=== PATIENT | female | born 1950 | race African-American/Black ===

== ENCOUNTER 2019-06-09 06:30 | Observation (INO) | payer MEDICARE, OTHER ==
[2019-06-08 12:25] LABS: BASOPHILS # (AUTO) 0.1 (0.0-0.1); BASOPHILS % 0.7 % (0.0-1.0); EOSINOPHILS # (AUTO) 0.2 (0.0-0.4); EOSINOPHILS % 2.1 % (0.0-6.0); HEMATOCRIT 37.4 % (34.2-44.1); HEMOGLOBIN 12.3 g/dL (12.0-16.0); LYMPHOCYTES # (AUTO) 1.4 (1.0-3.2); LYMPHOCYTES % 18.7 % (18.0-39.1); MEAN CORPUSCULAR HEMOGLOBIN 28.5 pg (28-32); MEAN CORPUSCULAR HGB CONC 32.9 g/dL (31-35); MEAN CORPUSCULAR VOLUME 86.8 fL (81-99); MONOCYTES # (AUTO) 0.5 (0.2-0.8); NEUTROPHILS # (AUTO) 5.2 (2.1-6.9); NEUTROPHILS % 71.2 % (38.7-80.0); PLATELET COUNT 208 x10e3/uL (140-360); RED BLOOD COUNT 4.31 x10e6/uL (3.6-5.1); RED CELL DISTRIBUTION WIDTH 14.6 % (11.7-14.4)
[2019-06-08 12:42] LABS: INR 0.86; PROTHROMBIN TIME 12.2 seconds (11.9-14.5)
[2019-06-08 12:43] LABS: PARTIAL THROMBOPLASTIN TIME 24.5 seconds (23.8-35.5)
[2019-06-08 12:46] LABS: ANION GAP 11.5 mmol/L (8-16); CALCIUM 11.3 mg/dL (8.4-10.2); CREATININE, SERUM 1.37 mg/dL (0.57-1.11); POTASSIUM 3.5 mmol/L (3.5-5.1)
--- NOTE | 2019-06-08 12:55 | Diagnostic Imaging Report ---
EXAM: CHEST 2 VIEWS DATE: 06/08/2019 11:53 AM INDICATION: Preoperative evaluation for spinal surgery COMPARISON: None FINDINGS: The trachea is midline. The lungs are symmetrically expanded without evidence for large focal consolidation, pneumothorax, or significant pleural effusion. The cardiomediastinal silhouette and pulmonary vasculature are within normal limits. No acute osseous abnormality is identified. The surrounding soft tissues are unremarkable. IMPRESSION: No acute cardiopulmonary process identified. Signed by: Dr. Frederic Sotelo MD on 06/08/2019 12:52 PM
[~2019-06-09] VITALS: Ht 172.7 cm; Wt 100.2 kg
[~2019-06-09 06:30] MED LIST: ACETAMINOPHEN500 M1 PO; AMLODIPINE BESYL5 MG PO; ATORVASTATIN CA20 MG PO; CALTRATE 600 W1 EACH PO; COQ-10100 MG PO; DIABETES HEALT1 EACH PO; GLIPIZIDE5 MG PO; LABETALOL HCL200 MG PO; LOSARTAN-HCTZ1 EACH PO; MEGA RED PO; METFORMIN HCL500 MG PO; NAPROXEN250 MG PO
--- OUTSIDE RECORDS SUMMARY | 2019-06-09 06:40 | XMS REPORT ---
Author Author ERICK STEPHENS [facility] eClinicalWorks Address Unknown Phone Unavailable Care Team Providers Care Battery Loader Name Role Phone ERICK STEPHENS Unavailable Allergies, Adverse Reactions, Alerts Substance Reaction Event Type codeine stomach upset Drug Allergy Encounters Encounter Location Date abdominal pain Niki Ordaz [place], [place] Apr 30, 2015 sleep study Niki Ordaz MD, [place] May 01, 2015 pain Niki Ordaz MD, [place] Sep 10, 2015 Med ck Niki Ordaz MD, [place] April 18, 2014 rx Niki Ordaz MD, [place] Jun 26, 2014 MEDS Niki Ordaz MD, [place] Aug 04, 2014 Problems Problem Type Condition ICD-9 Code Onset Dates Condition Status Assessment Diabetes with renal manifestations, type II or unspecified type, 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 Active Assessment Unspecified essential hypertension 401.9 Active Assessment Other and unspecified hyperlipidemia 272.4 Active Assessment Obesity 278.00 Active Assessment Atrial fibrillation 427.31 Active Problem Atrial fibrillation 427.31 Active Problem Obesity 278.00 Active Problem Low back pain M54.5 Active Problem Diabetes with renal manifestations, type II or unspecified type, 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 Active Assessment Low back pain M54.5 Active Problem Unspecified essential hypertension 401.9 Active Problem Other and unspecified hyperlipidemia 272.4 Active Medications Medication Code System Code Instructions Start Date End Date Status Dosage [facility] [address]-04 10 MG Orally Once a day Active 1 tablet [facility] [address]-75 25 MG Orally Active Unknown PredniSONE [facility] [address]-37 10 mg Orally twice a day (bid) Sep 10, 2015 Sep 15, 2015 Active 1 tablet with food or milk Eliquis [facility] [address]-33 5 MG Orally Active Unknown Tradjenta [facility] [address]-46 5 MG Orally Once a day Active 1 tablet Losartan Potassium-HCTZ [facility] [address]-75 50-12.5 MG Orally Once a day Active 1 tablet Simvastatin [facility] [address]-62 40 MG Orally Once a day Active 1 tablet in the evening Hyzaar [facility] 58907781734 100-25 Active TAKE ONE TABLET BY MOUTH ONE TIME DAILY Labetalol HCl [facility] [address]-50 300 PO twice a day (bid) Active take 1.5 tablet by mouth twice daily Social History Social History Element Qualifiers Date Reported Tobacco Use: . Are you a: never smoker Sep 10, 2015 Use of recreational / street drugs? . Answer: No Sep 10, 2015 Alcohol Screening: . Points: 0, Interpretation: Negative Sep 10, 2015 Do you have pets? . Status: Yes, Type: dog(s) Sep 10, 2015 Marital Status: . Sep 10, 2015 Caffeine intake? . Status: Yes, What type: Coffee, 1 cup a day Sep 10, 2015 Do you exercise? . Answer: No Sep 10, 2015 Do you drink alcohol? . Status: No Sep 10, 2015 Occupation: . Retired; [employer] Sep 10, 2015 Family history Qualifier Description Comment Date Reported Maternal Grandmother Comment not available Sep 10, 2015 Paternal Grandmother Comment not available Sep 10, 2015 Siblings alive HTN Sep 10, 2015 Maternal Grandfather Comment not available Sep 10, 2015 Children alive son bipolar and amputee Sep 10, 2015 Father Comment not available Sep 10, 2015 Paternal Grandfather Comment not available Sep 10, 2015 Mother alive Dementia HTN Sep 10, 2015 Other: Comment not available Sep 10, 2015 Vital Signs Date/Time: Sep 10, 2015 Blood Pressure Diastolic 84 mm Hg Blood Pressure Systolic 130 mm Hg Temperature 97.6 F Weight 233 lbs Height 69 in Summary Purpose eClinicalWorks Submission
--- OUTSIDE RECORDS SUMMARY | 2019-06-09 06:40 | XMS REPORT ---
Author Author NIKI CHARLES Organization eClinicalWorks Address Unknown Phone Unavailable Care Team Providers Care Tour Escort Name Role Phone NIKI CHARLES CP Unavailable Encounters Encounter Location Date abdominal pain Niki Charles MD, [place] Apr 30, 2015 sleep study Niki Charles MD, PA May 01, 2015 Med ck Niki Charles MD, PA April 18, 2014 rx Niki Charles MD, PA Jun 26, 2014 MEDS Niki Charles MD, [place] Aug 04, 2014 Problems Problem Type Condition ICD-9 Code Onset Dates Condition Status Problem Obesity 278.00 Active Problem Unspecified essential hypertension 401.9 Active Problem Atrial fibrillation 427.31 Active Problem Other and unspecified hyperlipidemia 272.4 Active Problem Diabetes with renal manifestations, type II or unspecified type, 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 Are you a: never smoker Apr 30, 2015 Use of recreational / street drugs? . Answer: No Apr 30, 2015 Alcohol Screening: . Points: 0, Interpretation: Negative Apr 30, 2015 Do you have pets? . Status: Yes, Type: dog(s) Apr 30, 2015 Marital Status: . Apr 30, 2015 Caffeine intake? . Status: Yes, What type: Coffee, 1 cup a day Apr 30, 2015 Do you exercise? . Answer: No Apr 30, 2015 Do you drink alcohol? . Status: No Apr 30, 2015 Occupation: . Retired; [employer] Apr 30, 2015 Summary Purpose eClinicalWorks Submission
--- OUTSIDE RECORDS SUMMARY | 2019-06-09 06:40 | XMS REPORT | Continuity of Care Document ---
Author Author [facility] Address Unknown Phone Unavailable Care Team Providers Care Redeye Gunner Name Role Phone [employer] Unavailable Unavailable Problems Problem Status Onset Date Classification Date Reported Comments Source Unspecified essential hypertension Active Diagnosis 09/17/2015 eCW: Niki Ordaz MD, [place] Other and unspecified hyperlipidemia Active Diagnosis 09/17/2015 eCW: Niki Ordaz MD, [place] Diabetes mellitus without mention of complication, type II or unspecified type, uncontrolled Active Problem 08/26/2014 eCW: Niki Ordaz MD [place] Diabetes with renal manifestations, type II or unspecified type, uncontrolled Active Diagnosis 09/17/2015 eCW: Niki Ordaz MD [place] Obesity Active Diagnosis 09/17/2015 eCW: Niki Ordaz MD [place] Atrial fibrillation Active Diagnosis 09/17/2015 eCW: Niki Ordaz MD, [place] Personal history of transient ischemic attack [TIA], and cerebral infarction without residual deficits Active Diagnosis 04/24/2014 eCW: Niki Ordaz MD [place] Chronic kidney disease, Stage III Active Diagnosis 04/24/2014 eCW: Niki Ordaz MD [place] Body Mass Index 33.0-33.9, adult Active Diagnosis 04/24/2014 eCW: Niki Ordaz MD, [place] Body Mass Index 34.0-34.9, adult Active Diagnosis 05/02/2015 eCW: Niki Ordaz MD, [place] Gastroenteritis Active Diagnosis 05/02/2015 eCW: Niki Ordaz MD PA UTI Active Diagnosis 05/02/2015 eCW: Niki Ordaz MD, PA Low back pain Active Diagnosis 01/17/2016 eCW: Niki Ordaz MD, [place] Obesity Active Diagnosis 01/17/2016 eCW: Niki Melvin, MD, PA 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 Diagnosis 01/17/2016 eCW: Niki Ordaz MD, PA Chronic kidney disease, stage II Active Problem 01/17/2016 eCW: Niki Ordaz MD, [place] Essential hypertension Active Problem 01/17/2016 eCW: Niki Ordaz MD, [place] Atrial fibrillation Active Problem 01/17/2016 eCW: Niki Ordaz MD, [place] Hyperlipidemia Active Problem 01/17/2016 eCW: Niki Ordaz MD, PA Medications Medication Details Route Status Patient Instructions Ordering Provider Order Date Source PredniSONE 1 tablet with food or milk Orally Active 10 mg Orally twice a day (bid) STEPHENS 09/10/2015 eCW: Niki Ordaz MD, PA Pyridium 1 tablet after meals Orally Active 200 MG Orally Three times a day [facility] 04/30/2015 eCW: Niki Ordaz MD, PA Cipro 1 tablet Orally Active 250 MG Orally every 12 hrs [facility] 04/30/2015 eCW: Niki Ordaz MD, PA Labetalol HCl as directed Orally Active 300 MG Orally daily [facility] 08/04/2014 eCW: Niki Ordaz MD, PA Fluticasone Propionate 2 spray in each nostril Nasally Active 50 MCG/ACT Nasally Once a day [facility] 06/26/2014 eCW: Niki Ordaz MD, PA Simvastatin 1 tablet in the evening Orally Active 40 MG Orally Once a day eCW: Niki Ordaz MD, [place] Metformin HCl 1 tablet with meals Orally Active 500 MG Orally Twice a day [facility] eCW: Niki Ordaz MD, PA NIFEdipine Unknown Orally Active 60 MG Orally [place] eCW: Niki Ordaz MD, PA Lorazepam 1 tablet at bedtime Orally Active 2 MG Orally Once a day [facility] eCW: Niki Ordaz MD, PA Pradaxa 2 capsules Orally Active 75 MG Orally Twice a day [facility] eCW: Niki Ordaz MD, PA Multaq 1 tablet with meals Orally Active 400 MG Orally Twice a day [facility] eCW: Niki Ordaz MD, PA Diovan 1 tablet Orally Active 80 MG Orally Once a day eCW: Niki Ordaz MD, ARUN Labetalol HCl Unknown Orally Active 300 MG Orally eCW: Niki Ordaz MD, ARUN Hyzaar TAKE ONE TABLET BY MOUTH ONE TIME DAILY NA Active 100- 25 eCW: Niki Ordaz MD, PA Zocor TAKE ONE TABLET BY MOUTH ONE TIME DAILY NA Active 40 eCW: Niki Ordaz MD, ARUN HydrOXYzine HCl Unknown Orally Active 25 MG Orally eCW: Niki Ordaz MD, PA Labetalol HCl take 1.5 tablet by mouth twice daily PO Active 300 PO twice a day (bid) eCW: Niki Ordaz MD, PA Nifedical XL TAKE ONE TABLET BY MOUTH ONE TIME DAILY NA Active 60 MG eCW: Niki Ordaz MD, PA GlipiZIDE 1 tablet Orally Active 10 MG Orally Once a day eCW: Niki Ordaz MD, PA Eliquis Unknown Orally Active 5 MG Orally eCW: Niki Ordaz MD, PA Tradjenta 1 tablet Orally Active 5 MG Orally Once a day eCW: Niki Ordaz MD, PA Multaq TAKE ONE TABLET BY MOUTH TWICE DAILY NA Active 400 eCW: Niki Ordaz MD, PA Losartan Potassium-HCTZ 2 tablet Orally Active 50-12.5 MG Orally Once a day eCW: Niki Ordaz MD, PA Digox 1 tablet Orally Active 250 MCG Orally Once a day eCW: Nkii Ordaz MD, PA Allergies, Adverse Reactions, Alerts Substance Category Reaction Severity Reaction type Status Date Reported Comments Source codeine Adverse Reaction stomach upset Adverse Reaction Active 11/15/2015 eCW: Niki Ordaz MD, [place] Metformin HCl Adverse Reaction elevates renal function Adverse Reaction Active 11/15/2015 eCW: Niki Ordaz MD, ARUN Immunizations No Data Provided for This Section Results No Data Provided for This Section Pathology Reports No Data Provided for This Section Diagnostic Reports No Data Provided for This Section Consultation Notes No Data Provided for This Section Discharge Summaries No Data Provided for This Section History and Physicals No Data Provided for This Section Vital Signs Vital Sign Value Date Comments Source Diastolic (mm Hg) 90 11/15/2015 eCW: Niki Ordaz MD, [place] Systolic (mm Hg) 140 11/15/2015 eCW: Niki Ordaz MD, PA Temperature Oral (F) 94.7 F 11/15/2015 eCW: Niki Ordaz MD, PA Weight 230 11/15/2015 eCW: Niki Ordaz MD, PA Height 69 11/15/2015 eCW: Niki Ordaz MD, PA Diastolic (mm Hg) 90 11/15/2015 eCW: Niki Ordaz MD, PA Systolic (mm Hg) 140 11/15/2015 eCW: Niki Ordaz MD, PA Temperature Oral (F) 94.7 F 11/15/2015 eCW: Niki Ordaz MD, PA Weight 230 11/15/2015 eCW: Niki Ordaz MD, PA Height 69 11/15/2015 eCW: Niki Ordaz MD, PA Diastolic (mm Hg) 84 09/10/2015 eCW: Niki Ordaz MD, PA Systolic (mm Hg) 130 09/10/2015 eCW: Niki Ordaz MD, PA Temperature Oral (F) 97.6 F 09/10/2015 eCW: Niki Ordaz MD, PA Weight 233 09/10/2015 eCW: Niki Ordaz MD, PA Height 69 09/10/2015 eCW: Niki Ordaz MD, PA Diastolic (mm Hg) 86 04/30/2015 eCW: Niki Ordaz MD, PA Systolic (mm Hg) 130 04/30/2015 eCW: Niki Ordaz MD, PA Temperature Oral (F) 98.7 F 04/30/2015 eCW: Niki Ordaz MD, PA Weight 235 04/30/2015 eCW: Niki Ordaz MD, PA Height 69 04/30/2015 eCW: Niki Ordaz MD, PA Weight 225 04/18/2014 eCW: Niki Ordaz MD, PA Height 69 04/18/2014 eCW: Niki Ordaz MD, PA Temperature Oral (F) 98.4 F 04/18/2014 eCW: Niki Ordaz MD, PA Diastolic (mm Hg) 82 04/18/2014 eCW: Niki Ordaz MD, PA Systolic (mm Hg) 130 04/18/2014 eCW: Niki Ordaz MD, PA Encounters Location Location Details Encounter Type Encounter Number Reason For Visit Attending Provider ADM Date DC Date Status Source Niki Ordaz MD, PA [facility] ck [id number] 04/18/2014 04/18/2014 eCW: Niki Ordaz MD, PA Niki Ordaz MD, [facility] ck [id number] 04/18/2014 04/18/2014 eCW: Niki Ordaz MD, PA Niki Ordaz MD, PA [facility] ck [id number] 04/18/2014 04/18/2014 eCW: Niki Ordaz MD, PA Niki Ordaz MD, PA [facility] ck [id number] 04/18/2014 04/18/2014 eCW: Niki Ordaz MD, PA Niki Ordaz MD, PA [facility] ck [id number] 04/18/2014 04/18/2014 eCW: Niki Ordaz MD, PA Niki Ordaz MD, PA [facility] ck [id number] 04/18/2014 04/18/2014 eCW: Niki Ordaz MD, PA Niki Ordaz MD, PA Med ck [id number] 04/18/2014 04/18/2014 eCW: Niki Ordaz MD, PA Niki Ordaz MD, PA Med ck [id number] 04/18/2014 04/18/2014 eCW: Niki Ordaz MD, PA Niki Ordaz MD, PA rx [id number] 06/26/2014 06/26/2014 eCW: Niki Ordaz MD, PA Niki Ordaz MD, [place] rx [id number] 06/26/2014 06/26/2014 eCW: Niki Ordaz MD, PA Niki Ordaz MD, PA rx [id number] 06/26/2014 06/26/2014 eCW: Niki Ordaz MD, PA Niki Ordaz MD, PA rx [id number] 06/26/2014 06/26/2014 eCW: Niki Ordaz MD, PA Niki Ordaz MD, PA rx [id number] 06/26/2014 06/26/2014 eCW: Niki Ordaz MD, PA Niki Ordaz MD, PA rx [id number] 06/26/2014 06/26/2014 eCW: Niki Ordaz MD, ARUN Ordaz MD, PA rx [id number] 06/26/2014 06/26/2014 eCW: Niki Ordaz MD, PA Niki Ordaz MD, PA MEDS [id number] 08/04/2014 08/04/2014 eCW: Niki Ordaz MD, PA Niki Ordaz MD, PA MEDS [id number] 08/04/2014 08/04/2014 eCW: Niki Ordaz MD, PA Niki Ordaz MD, PA MEDS [id number] 08/04/2014 08/04/2014 eCW: Niki Ordaz MD, PA Niki Ordaz MD, PA MEDS [id number] 08/04/2014 08/04/2014 eCW: Niki Ordaz MD, ARUN Ordaz MD, PA MEDS [id number] 08/04/2014 08/04/2014 eCW: Niki Ordaz MD, ARUN Ordaz MD, PA MEDS [id number] 08/04/2014 08/04/2014 eCW: Niki Ordaz MD, PA Niki Ordaz MD, PA abdominal pain [id number] 04/30/2015 04/30/2015 eCW: Niki Ordaz MD, ARUN Ordaz MD, PA abdominal pain [id number] 04/30/2015 04/30/2015 eCW: Niki Ordaz MD, PA Niki Ordaz MD, PA abdominal pain [id number] 04/30/2015 04/30/2015 eCW: Niki Ordaz MD, PA Niki Ordaz MD, PA abdominal pain [id number] 04/30/2015 04/30/2015 eCW: Niki Ordaz MD, PA Niki Ordaz MD, PA abdominal pain [id number] 04/30/2015 04/30/2015 eCW: Niki Ordaz MD, PA Niki Ordaz MD, PA sleep study [id number] 05/01/2015 05/01/2015 eCW: Niki Ordaz MD, PA Niki Ordaz MD, PA sleep study [id number] 05/01/2015 05/01/2015 eCW: Niki Ordaz MD, PA Niki Ordaz MD, PA sleep study [id number] 05/01/2015 05/01/2015 eCW: Niki Ordaz MD, PA Niki Ordaz MD, PA sleep study [id number] 05/01/2015 05/01/2015 eCW: Niki Ordaz MD, PA Niki Ordaz MD, PA sleep study [id number] 05/01/2015 05/01/2015 eCW: Niki Ordaz MD, PA Niki Ordaz MD, PA pain [id number] 09/10/2015 09/10/2015 eCW: Niki Ordaz MD, ARUN Ordaz MD, ARUN pain [id number] 09/10/2015 09/10/2015 eCW: Niik Ordaz MD, ARUN Ordaz MD, ARUN pain [id number] 09/10/2015 09/10/2015 eCW: Niki Ordaz MD, ARUN Ordaz MD, ARUN 3 month fu [id number] 11/15/2015 11/15/2015 eCW: Niki Ordaz MD, ARUN Ordaz MD, ARUN 3 month fu [id number] 11/15/2015 11/15/2015 eCW: Niki Ordaz MD, PA Procedures No Data Provided for This Section Assessment and Plan No Data Provided for This Section Plan of Care No Data Provided for This Section Social History Social History Date Source Social History ElementQualifiersDate Reported Tobacco Use: . Are you a: never smoker Nov 17, 2015 Use of recreational / street drugs? . Answer: No Nov 17, 2015 Alcohol Screening: . Points: 0, Interpretation: Negative Nov 17, 2015 Do you have pets? . Status: Yes, Type: dog(s) Nov 17, 2015 Marital Status: . Nov 17, 2015 Caffeine intake? . Status: Yes, What type: Coffee, 1 cup a day Nov 17, 2015 Do you exercise? . Answer: No Nov 17, 2015 Do you drink alcohol? . Status: No Nov 17, 2015 Occupation: . Retired; [employer] Nov 17, 2015 11/17/2015 eCW: Niki Ordaz MD [place] Family History Value Date Source QualifierDescriptionCommentDate Reported Maternal Grandmother Comment not available Nov 15, 2015 Paternal Grandmother Comment not available Nov 15, 2015 Siblings alive HTN Nov 15, 2015 Maternal Grandfather Comment not available Nov 15, 2015 Children alive son bipolar and amputee Nov 15, 2015 Father Comment not available Nov 15, 2015 Paternal Grandfather Comment not available Nov 15, 2015 Mother alive Dementia HTN Nov 15, 2015 Other: Comment not available Nov 15, 2015 01/17/2016 eCW: Niki Ordaz MD, PA QualifierDescriptionCommentDate Reported Maternal Grandmother Comment not available Nov 15, 2015 Paternal Grandmother Comment not available Nov 15, 2015 Siblings alive HTN Nov 15, 2015 Maternal Grandfather Comment not available Nov 15, 2015 Children alive son bipolar and amputee Nov 15, 2015 Father Comment not available Nov 15, 2015 Paternal Grandfather Comment not available Nov 15, 2015 Mother alive Dementia HTN Nov 15, 2015 Other: Comment not available Nov 15, 2015 11/18/2015 eCW: Niki Ordaz MD, PA QualifierDescriptionCommentDate Reported Maternal Grandmother Comment not available Sep [...] Other: Comment not available Sep 10, 2015 09/17/2015 eCW: Niki Ordaz MD, PA QualifierDescriptionCommentDate Reported Mother Dementia HTN April 18, 2014 04/24/2014 eCW: Niki Ordaz MD, PA Advance Directives No Data Provided for This Section Functional Status No Data Provided for This Section
--- OUTSIDE RECORDS SUMMARY | 2019-06-09 06:40 | XMS REPORT ---
Author Author MARY CHARLES Organization eClinicalWorks Address Unknown Phone Unavailable Care Team Providers Care Exploration Geologist Name Role Phone MARY CHARLES CP Unavailable Encounters Encounter Location Date Med ck Mary Charles MD, PA April 18, 2014 rx Mary Charles MD, PA Jun 26, 2014 Problems Problem Type Condition ICD-9 Code Onset Dates Condition Status Problem Unspecified essential hypertension 401.9 Active Problem Other and unspecified hyperlipidemia 272.4 Active Problem Diabetes mellitus without mention of complication, type II or unspecified type, uncontrolled 250.02 Active Problem Diabetes with renal manifestations, type II or unspecified type, 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 Active Medications Medication Code System Code Instructions Start Date End Date Status Dosage Fluticasone Propionate [facility] [address]-74 50 MCG/ACT Nasally Once a day Jun 26, 2014 Active 2 spray in each nostril Social History Social History Element Qualifiers Date Reported Tobacco Use:Never . Are you a: never smoker April 18, 2014 Alcohol Screening: . Points: 0, Interpretation: Negative April 18, 2014 Do you drink alcohol? . Status: No April 18, 2014 Occupation: . Retired; [employer] April 18, 2014 Summary Purpose eClinicalWorks Submission
--- OUTSIDE RECORDS SUMMARY | 2019-06-09 06:40 | XMS REPORT ---
Author Author NIKI CHARLES Organization eClinicalWorks Address Unknown Phone Unavailable Care Team Providers Care Public Service Representative Name Role Phone NIKI CHARLES Unavailable Allergies, Adverse Reactions, Alerts Substance Reaction Event Type codeine Info Not Available Drug Allergy Encounters Encounter Location Date abdominal pain Niki Charles MD, PA Apr 30, 2015 sleep study Niki Charles MD, PA May 01, 2015 Med ck Niki Charles MD, PA April 18, 2014 rx Niki Charles MD, PA Jun 26, 2014 MEDS Niki Charles MD, PA Aug 04, 2014 Problems Problem Type Condition ICD-9 Code Onset Dates Condition Status Assessment Body Mass Index 34.0-34.9, adult V85.34 Active Assessment Atrial fibrillation 427.31 Active Assessment Obesity 278.00 Active Problem Obesity 278.00 Active Problem Unspecified essential hypertension 401.9 Active Problem Atrial fibrillation 427.31 Active Assessment Gastroenteritis 558.9 Active Assessment UTI (urinary tract infection) 599.0 Active Problem Other and unspecified hyperlipidemia 272.4 Active Problem Diabetes with renal manifestations, type II or unspecified type, 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 Active Medications Medication Code System Code Instructions Start Date End Date Status Dosage [facility] 858[facility] 100-25 Active TAKE ONE TABLET BY MOUTH ONE TIME DAILY [facility] 75[facility]851 40 Active TAKE ONE TABLET BY MOUTH ONE TIME DAILY Simvastatin [facility] [address]-94 40 MG Orally Once a day Active 1 tablet in the evening NIFEdipine [facility] [address]-52 60 MG Orally Active Unknown HydrOXYzine HCl [facility] [address]-75 25 MG Orally Active Unknown Labetalol HCl [facility] [address]-53 300 PO twice a day (bid) Active take 1.5 tablet by mouth twice daily Nifedical XL [facility] 28874779030 60 MG Active TAKE ONE TABLET BY MOUTH ONE TIME DAILY Pradaxa [facility] [address]-47 75 MG Orally Twice a day Active 2 capsules Pyridium [facility] [address]-38 200 MG Orally Three times a day Apr 30, 2015 May 02, 2015 Active 1 tablet after meals Lorazepam [facility] [address]-25 2 MG Orally Once a day Active 1 tablet at bedtime Metformin HCl [facility] [address]-47 500 MG Orally Twice a day Active 1 tablet with meals GlipiZIDE [facility] [address]-68 10 MG Orally Once a day Active 1 tablet Eliquis [facility] [address]-05 5 MG Orally Active Unknown Fluticasone Propionate [facility] [address]-74 50 MCG/ACT Nasally Once a day Jun 26, 2014 Active 2 spray in each nostril Cipro [facility] [address]-23 250 MG Orally every 12 hrs Apr 30, 2015 May 05, 2015 Active 1 tablet Tradjenta [facility] [address]-88 5 MG Orally Once a day Active 1 tablet Multaq [facility] 80366156434 400 Active TAKE ONE TABLET BY MOUTH TWICE DAILY Diovan [facility] [address]-95 80 MG Orally Once a day Active 1 tablet Social History Social History Element Qualifiers Date [...] Apr 30, 2015 Occupation: . Retired; [employer] Apr 30, 2015 Vital Signs Date/Time: Apr 30, 2015 Blood Pressure Diastolic 86 mm Hg Blood Pressure Systolic 130 mm Hg Temperature 98.7 F Weight 235 lbs Height 69 in Summary Purpose eClinicalWorks Submission
--- OUTSIDE RECORDS SUMMARY | 2019-06-09 06:40 | XMS REPORT ---
Author Author ERICK STEPHENS [facility] eClinicalWorks Address Unknown Phone Unavailable Care Team Providers Care Trans Router Name Role Phone ERICK STEPHENS CP Unavailable Allergies, Adverse Reactions, Alerts Substance Reaction Event Type codeine stomach upset Drug Allergy Metformin HCl elevates renal function Drug Allergy Encounters Encounter Location Date abdominal pain [place] Apr 30, 2015 sleep study [place] May 01, 2015 pain [place], [place] Sep 10, 2015 3 month fu [place] Nov 15, 2015 Med ck [place] April 18, 2014 rx [place] Jun 26, 2014 MEDS [place], [place] Aug 04, 2014 Problems Problem Type Condition ICD-9 Code Onset Dates Condition Status Assessment Obesity E66.9 Active Assessment Type 2 diabetes mellitus with diabetic chronic kidney disease E11.22 Active Assessment Low back pain M54.5 Active Problem Chronic kidney disease, stage II (mild) N18.2 Active Problem Essential hypertension I10 Active Problem Type 2 diabetes mellitus with diabetic chronic kidney disease E11.22 Active Problem Low back pain M54.5 Active Problem Obesity E66.9 Active Problem Atrial fibrillation I48.91 Active Problem Hyperlipidemia E78.5 Active Assessment Hyperlipidemia E78.5 Active Assessment Atrial fibrillation I48.91 Active Assessment Essential hypertension I10 Active Assessment Chronic kidney disease, stage II (mild) N18.2 Active Medications Medication Code System Code Instructions Start Date End Date Status Dosage Labetalol HCl [facility] [address]-95 300 PO twice a day (bid) Active take 1.5 tablet by mouth twice daily Losartan Pot[facility]CTZ [facility] [address]-25 50-12.5 MG Orally Once a day Active 2 tablet Simvastatin [facility] [address]-91 40 MG Orally Once a day Active 1 tablet in the evening Hyzaar [facility] 82305648871 100-25 Active TAKE ONE TABLET BY MOUTH ONE TIME DAILY Eliquis [facility] [address]-83 5 MG Orally Active Unknown Digox [facility] [address]-89 250 MCG Orally Once a day Active 1 tablet Zocor [facility] 04721265659 40 Active TAKE ONE TABLET BY MOUTH ONE TIME DAILY HydrOXYzine HCl [facility] [address]-54 25 MG Orally Active Unknown GlipiZIDE [facility] [address]-36 10 MG Orally Once a day Active 1 tablet Tradjenta [facility] [address]-79 5 MG Orally Once a day Active [...] No Nov 17, 2015 Occupation: . Retired; [employer] Nov 17, 2015 Family history Qualifier Description Comment Date Reported Maternal Grandmother Comment not available Nov [...] Other: Comment not available Nov 15, 2015 Vital Signs Date/Time: Nov 15, 2015 Blood Pressure Diastolic 90 mm Hg Blood Pressure Systolic 140 mm Hg Temperature 94.7 F Weight 230 lbs Height 69 in Summary Purpose eClinicalWorks Submission
--- OUTSIDE RECORDS SUMMARY | 2019-06-09 06:40 | XMS REPORT | Clinical Summary ---
Author Author [facility] Organization [facility] Address Unknown Phone Unavailable Care Team Providers Care Chemistry Faculty Member Name Role Phone Abiodun Álvarez MD PCP Allergies Comments Active Allergy Reactions Severity Noted Date Nausea, vomiting Codeine 07/17/2016 Nitroglycerin Itching 07/17/2016 Medications End Date Status Medication Sig Dispensed Refills Start Date Active labetalol (NORMODYNE) 300 TAKE 1.5 (ONE 0 MG tablet AND A HALF) 6 TABLETS BY MOUTH TWICE A DAY Active glipiZIDE (GLUCOTROL) 10 Take 10 mg by 0 MG tablet mouth. Active losartan-hydrochlorothiaz Take 1 tablet 1 jose r (HYZAAR) 50-12.5 mg by mouth once 6 per tablet daily. Active metFORMIN XR 0 (GLUCOPHATE-XR) 500 MG 24 6 hr tablet Active ELIQUIS 5 mg tablet Take 5 mg by 3 mouth once 6 daily. Active simvastatin (ZOCOR) 40 MG Take 40 mg by 0 tablet mouth. Active atorvastatin (LIPITOR) 20 Take 20 mg by 3 MG tablet mouth once 6 daily. Active amLODIPine (NORVASC) 10 Take 10 mg by 3 mg tablet mouth once 7 daily. Active hydroCHLOROthiazide 0 (HYDRODIURIL) 12.5 MG 7 tablet Active lifitegrast (XIIDRA) 5 % Apply 1 drop 60 each 12 dropperette to eye 2 8 (two) times a day. Active olopatadine (PAZEO) 0.7 % Apply 1 drop 2.5 mL 11 drops to eye daily. 9 12/20/2018 Discontinued (Cost of medication) TRADJENTA 5 mg tablet Take 5 mg by 1 mouth once 6 daily. 12/20/2018 Discontinued (Reorder) olopatadine (PAZEO) 0.7 % Apply 1 drop 2.5 mL 11 drops to eye daily. 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 Encounters Care Team Description Date Type Specialty Marce Corcoran MD Nuclear senile cataract of both eyes (Primary Dx); Cupping of optic disc, bilateral 04/25/2019 Office Visit Ophthalmology Marce Corcoran MD Cupping of optic disc, bilateral (Primary Dx); Insufficiency of tear film of both eyes; Nuclear senile cataract of both eyes; Allergic conjunctivitis of both eyes 12/20/2018 Office Visit Ophthalmology Marce Corcoran MD Optic nerve cupping of both eyes (Primary Dx); Insufficiency of tear film of both eyes; Nuclear senile cataract of both eyes 07/26/2018 Office Visit Ophthalmology after 06/08/2018 Family History Medical History Relation Name Comments Thyroid disease Mother Relation Name Status Comments Mother Social History Date Tobacco Use Types Packs/Day Years Used Never Smoker Smokeless Tobacco: Never Used Drinks/Week oz/Week Comments Alcohol Use Yes Sex Assigned at Date Recorded Not on file Industry Job Start Date Occupation Not on file Not on file Not on file Travel End Travel History Travel Start No recent travel history available. Last Filed Vital Signs Not on file Plan of Treatment Care Team Description Date Type Specialty Marce Corcoran MD [address] [facility] [address] [place] [address] [phone] 10/25/2019 Office Visit Ophthalmology Health Maintenance Due Date Last Done Comments BREAST CANCER SCREENING 2000 COLONOSCOPY SCREENING 2000 SHINGLES VACCINES (#1) 2000 65+ PNEUMOCOCCAL VACCINE 2015 (1 of 2 - PCV13) INFLUENZA VACCINE 04/21/2019 06/24/2016 Procedures Comments Procedure Name Priority Date/Time Associated Diagnosis OCT, OPTIC NERVE - OU - Routine 04/25/2019 Cupping of optic disc, BOTH EYES 10:56 AM CDT bilateral AUTOMATED VISUAL FIELD, Routine 04/25/2019 Cupping of optic disc, EXTENDED - OU - BOTH EYES 10:56 AM CDT bilateral after 06/08/2018 Results * OCT, Optic Nerve - OU - Both Eyes (04/25/2019 10:56 AM CDT) Specimen Narrative Performed At Right Eye Reliability was good. Temporal thickness was normal. Superior thickness was normal. Nasal thickness was normal. Inferior thickness was normal. Left Eye Reliability was good. Temporal thickness was normal. Superior thickness was normal. Nasal thickness was normal. Inferior thickness was normal. Notes Global 84 and 88, normal OU * Automated Visual Field, Extended - OU - Both Eyes (04/25/2019 10:56 AM CDT) Specimen Narrative Performed At Right Eye Threshold was 24-2. Strategy was DIANNE. Reliability was poor. Foveal threshold was normal. Findings include non-specific defects. Left Eye Threshold was 24-2. Strategy was DIANNE. Reliability was poor. Foveal threshold was normal. Findings include non-specific defects. after 06/08/2018 Insurance Type Payer Benefit Subscriber ID Effective Phone Address Plan / Dates Group O [facility] MEDICARE [facility] xxxxxxxxx 2019-P MEDICARE resent HMO/PPO Advance Directives For more information, please contact: [phone] Patient Doggy Daycare Activities Director Explanation Type Date Recorded Advance Directives, Living Will and Medical Power of Procurement Director
--- OUTSIDE RECORDS SUMMARY | 2019-06-09 06:40 | XMS REPORT ---
Author Author ERICK STEPHENS [facility] eClinicalWorks Address Unknown Phone Unavailable Care Team Providers Care Airplane Pilot Commercial Name Role Phone ERICK STEPHENS CP Unavailable [...] Date End Date Status Dosage [facility] [address]-06 300 PO twice a day (bid) Active take 1.5 tablet by mouth twice daily Losartan [facility] [address]-20 50-12.5 MG Orally Once a day Active 2 tablet Simvastatin [facility] [address]-38 40 MG Orally Once a day Active 1 tablet in the evening Hyzaar [facility] 76585857204 100-25 Active TAKE ONE TABLET BY MOUTH ONE TIME DAILY Eliquis [facility] [address]-41 5 MG Orally Active Unknown Digox [facility] [address]-74 250 MCG Orally Once a day Active 1 tablet Zocor [facility] 83178009522 40 Active TAKE ONE TABLET BY MOUTH ONE TIME DAILY HydrOXYzine HCl [facility] [address]-63 25 MG Orally Active Unknown GlipiZIDE [facility] [address]-24 10 MG Orally Once a day Active 1 tablet Tradjenta [facility] [address]-87 5 MG Orally Once a day Active [...] No Nov 17, 2015 Occupation: . Retired; [employer] Nov 17, 2015 Family history Qualifier Description [...] F Weight 230 lbs Height 69 in Results 2708 HEMOGLOBIN A1c Summary Purpose eClinicalWorks Submission
--- OUTSIDE RECORDS SUMMARY | 2019-06-09 06:40 | XMS REPORT ---
Author Author MARY CHARLES Organization eClinicalWorks Address Unknown Phone Unavailable Care Team Providers Care Exec. Creative Director Name Role Phone MARY CHARLES CP Unavailable Allergies, Adverse Reactions, Alerts Substance Reaction Event Type codeine Info Not Available Drug Allergy Encounters Encounter Location Date Med ck [place], [place] April 18, 2014 Problems Problem Type Condition ICD-9 Code Onset Dates Condition Status Assessment Personal history of transient ischemic attack [TIA], and cerebral infarction without residual deficits V12.54 Active Assessment Diabetes with renal manifestations, type II or unspecified type, 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 Active Assessment Atrial fibrillation 427.31 Active Assessment Chronic kidney disease, Stage III (moderate) 585.3 Active Problem Unspecified essential hypertension 401.9 Active Problem Other and unspecified hyperlipidemia 272.4 Active Problem Diabetes mellitus without mention of complication, type II or unspecified type, uncontrolled 250.02 Active Assessment Other and unspecified hyperlipidemia 272.4 Active Assessment Body Mass Index 33.0-33.9, adult V85.33 Active Problem Diabetes with renal manifestations, type II or unspecified type, 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 Active Assessment Unspecified essential hypertension 401.9 Active Medications Medication Code System Code Instructions Start Date End Date Status Dosage Simvastatin [facility] [address]-56 40 MG Orally Once a day Active 1 tablet in the evening Metformin HCl [facility] [address]-26 500 MG Orally Twice a day Active 1 tablet with meals NIFEdipine [facility] [address]-12 60 MG Orally Active Unknown Lorazepam [facility] [address]-73 2 MG Orally Once a day Active 1 tablet at bedtime Pradaxa [facility] [address]-40 75 MG Orally Twice a day Active 2 capsules Multaq [facility] [address]-93 400 MG Orally Twice a day Active 1 tablet with meals Diovan [facility] [address]-84 80 MG Orally Once a day Active 1 tablet Labetalol HCl [facility] [address]-80 300 MG Orally Active Unknown Social History Social History Element Qualifiers Date Reported Tobacco Use: . Are you a: never smoker April 18, 2014 Alcohol Screening: . Points: 0, Interpretation: Negative April 18, 2014 Do you drink alcohol? . Status: No April 18, 2014 Occupation: . Retired; [employer] April 18, 2014 Family history Qualifier Description Comment Date Reported Mother Dementia HTN April 18, 2014 Vital Signs Date/Time: April 18, 2014 Weight 225 lbs Height 69 in Temperature 98.4 F Blood Pressure Diastolic 82 mm Hg Blood Pressure Systolic 130 mm Hg Summary Purpose eClinicalWorks Submission
--- OUTSIDE RECORDS SUMMARY | 2019-06-09 06:40 | XMS REPORT ---
[facility] Address Unknown Phone Unavailable Care Team Providers Care Textile Machinery Sales Representative Name Role Phone YENNI MATIAS Unavailable Unavailable Payers Payer Name Policy Type Policy Number Effective Date Expiration Date Problems This patient has no known problems. Allergies, Adverse Reactions, Alerts This patient has no known allergies or adverse reactions. Medications This patient has no known medications. Results Test Description Test Time Test Comments Text Results Atomic Results Result Comments CHEST 2 VIEWS 2019-06-08 12:52:00 [place] [address] Patient Name: DORIS SEYMOUR MR #: [id number] : 1950 Age/Sex: 68/F Req #: [id number] [facility] Physician: Ordered by: YENNI MATIAS MD Report #: [id number] Location: OR Room/Bed: Procedure: [id number] DX/CHEST 2 VIEWS Exam Date: 06/08/19 Exam Time: 1230 REPORT STATUS: Signed EXAM: CHEST 2 VIEWS DATE: 06/08/2019 11:53 AM IN DICATION: Preoperative evaluation for spinal surgery COMPARISON: None FINDINGS: The trachea is midline. The lungs are symmetrically expanded without evidence for large focal consolidation, pneumothorax, or significant pleural effusion. The cardiomediastinal silhouette and pulmonary vasculature are within normal limits. No acute osseous abnormality is identified. The surrounding soft tissues are unremarkable. IMPRESSION: No acute cardiopulmonary process identified. Signed by: Dr. Frederic Sotelo MD on 06/08/2019 12:52 PM Dictated By: FREDERIC SOTELO MD 1252 Transcribed By: MEKA on 06/08/19 1252 COPY TO: YENNI MATIAS MD
--- OUTSIDE RECORDS SUMMARY | 2019-06-09 06:40 | XMS REPORT | Summary of Care ---
Author Author Tiffanie [facility]ros[facility] Address Unknown Phone Unavailable Care Team Providers Care Route Sales Delivery Driver Name Role Phone Abdelrahman Arnold, Tiffanie Unavailable Unavailable KAIA Arnold, SILVIA Unavailable Unavailable CELIA Arnold, ANAIS Unavailable Unavailable CELIA ANDREWS [place], ANAIS Martins Unavailable Unavailable Unavailable Unavailable Functional Status Name Dates Details Functional status health issues are not documented Status: Name Dates Details Cognitive status health issues are not documented Status: Problems Name Dates Details Other hyperlipidemia (272.4, E78.49) Status: Active Anxiety (300.00, F41.9) Status: Active Diabetes mellitus (250.00, E11.9) Status: Active Atrial fibrillation (427.31, I48.91) Status: Active Essential (primary) hypertension (401.9, I10) Status: Active Depressive disorder (311, F32.9) Status: Active Encounter for long-term (current) use of medications (V58.69, Z79.899) Status: Active Lumbar stenosis (724.02, M48.061) Status: Active Scoliosis (737.30, M41.9) Status: Active Medications Name Dates Details DilTIAZem HCl ER 120 MG Oral Capsule Extended Release 24 Hour TAKE 1 CAPSULE ONCE DAILY. Quantity: 30 ILIAS M.D., SILVIA * Start : 07-May-2010 Active Warfarin Sodium 5 MG Oral Tablet TAKE 1 TABLET DAILY DIRECTED. * Quantity: 30 Refills: 2 ILIAS M.D., SILVIA * Start : 07-May-2010 Active Metoprolol Succinate ER 200 MG Oral Tablet Extended Release 24 Hour TAKE 1 TABLET TWICE DAILY * Quantity: 60 Refills: 0 ILIAS M.D., SILVIA * Start : 07-May-2010 Active Aspirin 81 MG TABS TAKE 1 TABLET DAILY. * Quantity: 30 Refills: 0 ILIAS M.D., SILVIA * Start : 07-May-2010 Active Simvastatin 40 MG Oral Tablet TAKE 1 TABLET DAILY AT BEDTIME. * Quantity: 30 Refills: 5 ILIAS M.D., SILVIA * Start : 07-May-2010 Active ALPRAZolam 0.25 MG Oral Tablet TAKE 1 TABLET 3 TIMES DAILY NEEDED. * Quantity: 30 Refills: 0 Tiffanie Quick M.D. * Start : 14-May-2010 Active Meloxicam 15 MG Oral Tablet TAKE 1 TABLET DAILY NEEDED. * Quantity: 30 Refills: 0 ANAIS YANG M.D. * Start : 01-Sep-2018 Active Gabapentin 100 MG Oral Capsule TAKE 1 CAPSULE AT BEDTIME. * Quantity: 30 Refills: 2 ANAIS YANG M.D. * Start : 07-Sep-2018 Active Allergies and Adverse Reactions Name Dates Details Codeine Derivatives (Allergy) Status: Active Past Medical History Name Dates Details History of polycystic ovarian syndrome (V13.29, Z87.42) Status: Resolved Procedures Procedure Dates Details Physical Therapy Date: 01-Sep-2018 Immunization Name Dates Details Immunizations not documented Family History Name Dates Details Family history of Acute Myocardial Infarction (V17.3) Comments: Family History Status: Active Name Dates Details Family history of Hypertension (V17.49) Status: Active Name Dates Details Family history of Aortic Aneurysm Status: Active Social History Name Dates Details - Status: Name Dates Details Never smoker Vital Signs Date Test Result Details No Known Vitals to report Results Date Description Value Details Results not documented Plan of Care Name Dates Details Planned Observations Planned Goals not documented Planned Encounters Appointment; ANAIS YANG M.D. On: 24-Nov-2018 10:45 Interventions Provided Medication Changes* Gabapentin 100 MG Oral Capsule - Start * Meloxicam 15 MG Oral Tablet - Start Labs/Procedures/Imaging* Physical Therapy; To Be Done: 01 Sep 2018 Instructions Name Dates Details Instructions not documented Encounters Appointment; ANAIS YANG M.D. Encounter Diagnosis: Problem not documented On: 01-Sep-2018 10:30
--- OUTSIDE RECORDS SUMMARY | 2019-06-09 06:40 | XMS REPORT ---
Author Author NIKI CHARLES Organization eClinicalWorks Address Unknown Phone Unavailable Care Team Providers Care Spoke Maker Name Role Phone NIKI CHARLES CP Unavailable Encounters Encounter Location Date Med ck Niki Charles [place], [place] April [...] Date End Date Status Dosage Labetalol HCl [facility] [address]-55 300 MG Orally daily Aug 04, 2014 Active as directed Social History Social History Element Qualifiers Date Reported Tobacco Use:Never . Are you a: never smoker April 18, 2014 Alcohol Screening: . Points: 0, Interpretation: Negative April 18, 2014 Do you drink alcohol? . Status: No April 18, 2014 Occupation: . Retired; [employer] April 18, 2014 Summary Purpose eClinicalWorks Submission
[2019-06-09] MEDS ORDERED: BACITRACIN 50,000 UNIT VIAL ONE (06:46)
[2019-06-09] MEDS ORDERED: BUPIVACAINE 0.5%/EPI 30 ML SDV INJ ONE (06:46)
[2019-06-09] MEDS ORDERED: THROMBIN FOR SOLN 5,000 UNIT VIAL ONE (06:46)
[2019-06-09] MEDS ORDERED: LIDOCAINE HCL (LTA) 4 ML SOLN ONE (06:47)
[2019-06-09] MEDS ORDERED: IBUPROFEN 800MG/ 250ML 250 ML IV ONE (06:47)
[2019-06-09] MEDS ORDERED: ACETAMINOPHEN 1000 MG/100 ML 100 ML IV ONE (06:47)
[2019-06-09] MEDS ORDERED: CEFAZOLIN SOD 1 GM/NS 50ML 100 ML IV ONE (08:29)
[2019-06-09] MEDS ORDERED: MAGNESIUM/ALUMINUM/SIMETHICONE 30 ML UDC PO PRN (10:45)
[2019-06-09] MEDS ORDERED: ACETAMINOPHEN 325 MG TAB PO PRN (10:45)
[2019-06-09] MEDS ORDERED: NAPROXEN 250 MG TAB PO PRN (10:45)
[2019-06-09] MEDS ORDERED: DEXTROSE 50% SYRINGE 50 ML IV PRN (10:45)
[2019-06-09] MEDS ORDERED: PROMETHAZINE HCL (IM) 25 MG/ML VIAL IM PRN (10:45)
[2019-06-09] MEDS ORDERED: OXYCODONE/ACETAMINOPHEN 5-325 1 EACH TABLET PO PRN (10:45)
[2019-06-09] MEDS ORDERED: MORPHINE SULFATE 5 MG/ML VIAL IM PRN (10:45)
[2019-06-09] MEDS ORDERED: CARISOPRODOL 350 MG TAB PO PRN (10:45)
[2019-06-09] MEDS ORDERED: MORPHINE SULFATE INJ 4 MG/ML INJ 1ML ONE (11:17)
[2019-06-09] MEDS ORDERED: HYDRALAZINE HCL 20 MG/ML VIAL ONE (11:38)
--- OUTSIDE RECORDS SUMMARY | 2019-06-09 11:40 | XMS REPORT | Clinical Summary ---
Author Author [facility] Organization [facility] Address Unknown Phone Unavailable Care Team Providers Care Vice Provost Name Role Phone Abiodun Álvarez MD PCP [...] Date Type Specialty Marce Corcoran MD [address] [facility] [address] [place] [address] [phone] 10/25/2019 Office Visit Ophthalmology Health Maintenance Due [...] Phone Address Plan / Dates Group O [facility] MEDICARE [facility] xxxxxxxxx 2019-P MEDICARE resent HMO/PPO Advance Directives For more information, please contact: [phone] Patient Immigration Services Officer Explanation Type Date Recorded Advance Directives, Living Will and Medical Power of Associate Professor Of Radiology
--- OUTSIDE RECORDS SUMMARY | 2019-06-09 11:40 | XMS REPORT | Continuity of Care Document ---
Author Author [employer] Address Unknown Phone Unavailable Care Team Providers Care Sap Bods Developer Name Role Phone [employer] Information [employer] Unavailable Unavailable Problems Problem Status Onset Date [...] 200 MG Orally Three times a day [facility] 04/30/2015 eCW: Niki Ordaz MD, PA Cipro 1 tablet Orally Active 250 MG Orally every 12 hrs [facility] 04/30/2015 eCW: Niki Ordaz MD, PA Labetalol HCl as directed Orally Active 300 MG Orally daily [facility] 08/04/2014 eCW: iNki Ordaz MD, PA Fluticasone Propionate 2 spray in each nostril Nasally Active 50 MCG/ACT Nasally Once a day [facility] 06/26/2014 eCW: Niki Ordaz MD, PA [...] 250 MCG Orally Once a day eCW: Niki Ordaz MD, PA Allergies, Adverse Reactions, Alerts [...] Date Status Source Niki Ordaz MD, PA [facility] ck [id number] 04/18/2014 04/18/2014 eCW: Niki Ordaz MD, PA Niki Ordaz MD, [facility] ck [id number] 04/18/2014 04/18/2014 eCW: Niki Ordaz MD, PA Niki Ordaz MD, PA [facility] ck [id number] 04/18/2014 04/18/2014 eCW: Niki Ordaz MD, PA Niki Ordaz MD, PA [facility] ck [id number] 04/18/2014 04/18/2014 eCW: Niki Ordaz MD, PA Niki Ordaz MD, PA [facility] ck [id number] 04/18/2014 04/18/2014 eCW: Niki Ordaz MD, PA Niki Ordaz MD, PA [facility] ck [id number] 04/18/2014 04/18/2014 eCW: Niki Ordaz MD, PA Niki Ordaz MD, PA Med ck [id number] 04/18/2014 04/18/2014 eCW: Niki Ordaz MD, PA Niki Ordaz MD, PA Med ck [id number] 04/18/2014 04/18/2014 eCW: Niki Ordaz MD, PA Niki Ordaz MD, PA rx [id number] 06/26/2014 06/26/2014 eCW: Niki Ordaz MD, PA Niki Ordaz MD, PA rx [id number] 06/26/2014 06/26/2014 eCW: Niki Ordaz MD, PA Niki Ordaz MD, PA rx [id number] 06/26/2014 06/26/2014 eCW: Niki Ordaz MD, PA Niki Ordaz MD, PA rx [id number] 06/26/2014 06/26/2014 eCW: Niki Ordaz MD, PA Niki Ordaz MD, PA rx [id number] 06/26/2014 06/26/2014 eCW: Niki Ordaz MD, PA Niki Ordaz MD, PA rx [id number] 06/26/2014 06/26/2014 eCW: Niki Ordaz MD, ARUN Ordaz MD, PA rx [id number] 06/26/2014 06/26/2014 eCW: Niki Ordaz MD, PA Niki Ordaz MD, PA MEDS [id number] 08/04/2014 08/04/2014 eCW: Niki Ordaz MD, PA Niki Ordaz MD, PA MEDS [id number] 08/04/2014 08/04/2014 eCW: Niki Ordaz MD, PA Niki Ordaz MD, PA MEDS [id number] 08/04/2014 08/04/2014 eCW: Niki Ordaz MD, PA Niki Ordaz MD, PA MEDS [id number] 08/04/2014 08/04/2014 eCW: Niki Ordaz MD, ARUN Ordaz MD, PA MEDS [id number] 08/04/2014 08/04/2014 eCW: Niki Ordaz MD, ARUN Ordaz MD, PA MEDS [id number] 08/04/2014 08/04/2014 eCW: Niki Ordaz MD, PA Niki Ordaz MD, PA abdominal pain [id number] 04/30/2015 04/30/2015 eCW: Niki Ordaz MD, ARUN Ordaz MD, PA abdominal pain [id number] 04/30/2015 04/30/2015 eCW: Niki Ordaz MD, PA Niki Ordaz MD, PA abdominal pain [id number] 04/30/2015 04/30/2015 eCW: Niki Ordaz MD, PA Niki Ordaz MD, PA abdominal pain [id number] 04/30/2015 04/30/2015 eCW: Niki Ordaz MD, PA Niki Ordaz MD, PA abdominal pain [id number] 04/30/2015 04/30/2015 eCW: Niki Ordaz MD, PA Niki Ordaz MD, PA sleep study [id number] 05/01/2015 05/01/2015 eCW: Niki Ordaz MD, PA Niki Ordaz MD, PA sleep study [id number] 05/01/2015 05/01/2015 eCW: Niki Ordaz MD, PA Niki Ordaz MD, PA sleep study [id number] 05/01/2015 05/01/2015 eCW: Niki Ordaz MD, PA Niki Ordaz MD, PA sleep study [id number] 05/01/2015 05/01/2015 eCW: Niki Ordaz MD, PA Niki Ordaz MD, PA sleep study [id number] 05/01/2015 05/01/2015 eCW: Niki Ordaz MD, PA Niki Ordaz MD, PA pain [id number] 09/10/2015 09/10/2015 eCW: Niki Ordaz MD, ARUN Ordaz MD, ARUN pain [id number] 09/10/2015 09/10/2015 eCW: Niki Ordaz MD, ARUN Ordaz MD, ARUN pain [id number] 09/10/2015 09/10/2015 eCW: Niki Ordaz MD, ARUN Ordaz MD, ARUN 3 month fu [id number] 11/15/2015 11/15/2015 eCW: Niki Ordaz MD, ARUN Ordaz MD, ARUN 3 month fu [id number] 11/15/2015 11/15/2015 eCW: Niki Ordaz MD, PA [...] No Nov 17, 2015 Occupation: . Retired; [employer] [facility] Nov 17, 2015 11/17/2015 eCW: Niki Ordaz [...]
--- NOTE | 2019-06-09 12:40 | NUR ---
Recvd patient from PACU. AAOx3, incision on lumbar area is intact with drain. no distress noted call light in reach, daughter at bed side
[2019-06-09 13:14] VITALS: BP 183/79
[2019-06-09] MEDS: ONDANSETRON HCL INJ 2MG/ML 2ML 2 MG/ML VIAL IV PRN ×2 (13:49→18:16)
[2019-06-09] MEDS: LACTATED RINGER'S 1,000 ML IV SCH ×2 (13:58→18:59)
[2019-06-09] MEDS: HYDROMORPHONE 2MG/ML 2 MG/ML ML IV PRN ×2 (13:58→18:45)
[2019-06-09 14:24] VITALS: BP 170/79
[2019-06-09 15:12] VITALS: BP 138/65
[2019-06-09] MEDS ORDERED: MORPHINE SULFATE INJ 4 MG/ML INJ 1ML IM PRN (16:00)
--- NOTE | 2019-06-09 16:50 | Diagnostic Imaging Report ---
EXAM: SPINE 1 VW LUMBAR DATE: 06/09/2019 12:00 AM INDICATION: ^[id number] ^0915 ^X-RAY FOR SURGICAL LEVEL COMPARISON: None FINDINGS: Lateral view of the lumbar spine is severely limited by underpenetration. Body heights appear maintained. The visualized disc spaces are maintained. Grade 1 spondylolisthesis of L4 on L5. L5-S1 space in particular is not well seen. There are 2 crossing lines at what appears to be the L4 level. IMPRESSION: Underpenetrated lateral view of lumbar spine. Signed by: Dr. Arash Ac M.D. on 06/09/2019 4:47 PM
--- NOTE | 2019-06-09 16:56 | Diagnostic Imaging Report ---
EXAM: SPINE 1 VW LUMBAR DATE: 06/09/2019 12:00 AM INDICATION: ^[id number] ^0930 ^X-RAY FOR SURGICAL LEVEL. COMPARISON: Lateral lumbar spine, 06/09/2019 FINDINGS: Lateral lumbar spine is severely limited due to underpenetration. The L4-S1 level is particularly not well seen. A marker projects over the posterior soft tissues, likely behind the L5 vertebral body. IMPRESSION: Severely underpenetrated lateral lumbar spine with marker posterior to the lower lumbar level, possibly behind L5. Signed by: Dr. Arash Ac M.D. on 06/09/2019 4:53 PM
--- NOTE | 2019-06-09 16:59 | Diagnostic Imaging Report ---
EXAM: SPINE 1 VW LUMBAR DATE: 06/09/2019 12:00 AM INDICATION: ^[id number] ^0942 ^X-RAY FOR SURGICAL LEVEL. COMPARISON: Lateral lumbar spine, 06/09/2019 FINDINGS: Since last exam the marker projected on the posterior soft tissues of the lower lumbar spine has been removed to a higher level. Again, L4-S1 are obscured by underpenetration. A marker may be behind the L4-5 level. Precise determination is uncertain, however, because of underpenetration. IMPRESSION: Lateral lumbar spine with L4-S1 partially obscured by underpenetration. A marker in the posterior soft tissues may be behind the L4-5 level. Signed by: Dr. Arash Ac M.D. on 06/09/2019 4:56 PM
[2019-06-09] MEDS ORDERED: NON-FORMULARY MEDICATION (Losartan/Hydrochlorothiazide (Losartan-Hctz 50-12.5 Mg Tab) 1 TA PO SCH (17:00)
[2019-06-09] MEDS: GLIPIZIDE 5 MG TAB PO SCH (17:02)
[2019-06-09] MEDS: LABETALOL HCL 200 MG TAB PO SCH (17:03)
[2019-06-09] MEDS: LOSARTAN POTASSIUM 25 MG TAB PO SCH (17:03)
[2019-06-09] MEDS: CEFAZOLIN SOD 1 GM/NS 50ML 50 ML IV SCH (17:03)
[2019-06-09] MEDS: METFORMIN HCL 500 MG TAB PO SCH (17:03)
[2019-06-09] MEDS: HYDROCHLOROTHIAZIDE 25 MG TAB PO SCH (17:03)
--- NOTE | 2019-06-09 17:39 | Operative Report ---
DATE OF PROCEDURE: 06/09/2019 SURGEON: Cruzito Norman MD PREOPERATIVE DIAGNOSIS: L4-L5 severe spinal stenosis with neurogenic claudication, M48.062. POSTOPERATIVE DIAGNOSIS: L4-L5 severe spinal stenosis with neurogenic claudication, M48.062. PROCEDURES: 1. L4 bilateral decompressive laminectomy and bilateral L4-L5 medial facetectomies, 28340. 2. L5 bilateral partial decompressive laminectomy, 82159. ANESTHESIA: General. INDICATIONS: The patient is a woman, who presents with severe L4-L5 spinal stenosis and was taken to the operating room for bilateral decompressive laminectomy. PROCEDURE IN DETAIL: After induction of general anesthesia, the patient was placed on the operating table in prone position over Geremias frame. The lumbar region was prepped and draped in sterile fashion. A preoperative x-ray was obtained. A small midline incision was created. Lumbar fascia was opened along the midline and subperiosteal dissection was carried out to expose the underlying spinous processes and lamina, and the medial aspect of the facet joints. Two additional x-rays were obtained until correct localization was confirmed. Portions of the spinous processes of L4 and L5 were resected. A high-speed drill equipped with a 5 mm nelly bur was then used to drill the inferior half of the lamina of L4 and superior half of the lamina of L5, and the medial rim of the hypertrophic L4-L5 facet joints bilaterally. The markedly hypertrophic ligamentum flavum was then carefully resected bilaterally to fully expose and decompress the dura and the L5 traversing nerve roots. After satisfactory decompression had been achieved, hemostasis was secured with bipolar electrocautery. The dura was covered with a layer of Gelfoam. A small Hemovac drain was placed and brought out through a separate stab incision. The wound was closed in multiple layers with 0 and 2-0 Vicryl sutures. The skin was closed with 3-0 Monocryl sutures in subcuticular fashion. Steri-Strips and dressing were applied. The patient was awakened, extubated, and taken to postanesthesia care in stable condition. No intraoperative complications were encountered. Estimated blood loss was 30 mL. Cruzito Norman MD PP/MODL /[id number]
[2019-06-09] MEDS ORDERED: SODIUM CHLORIDE 0.9% 250ML 250 ML ONE (18:38)
[2019-06-09] MEDS ORDERED: FENTANYL CITRATE/PF 100MCG/2 ML INJ ONE (18:50)
[2019-06-09] MEDS ORDERED: MIDAZOLAM HCL 2 MG/2 ML VIAL ONE (18:50)
[2019-06-09] MEDS ORDERED: LIDOCAINE HCL 2% LOCAL INJ 5 ML SDV VIAL INJ ONE (19:09)
[2019-06-09] MEDS ORDERED: ROCURONIUM BROMIDE 10 MG/ML 5ML VIAL ONE (19:09)
[2019-06-09] MEDS ORDERED: GLYCOPYRROLATE INJ 1MG/ 5 ML SYR ONE (19:09)
[2019-06-09] MEDS ORDERED: NEOSTIGMINE 5 MG/5ML SYR ONE (19:09)
[2019-06-09] MEDS ORDERED: DEXAMETHASONE SOD PHOS INJ 4 MG/ML VIAL ONE (19:09)
[2019-06-09] MEDS ORDERED: LIDOCAINE HCL 2% JELLY 5 ML TUBE ONE (19:09)
[2019-06-09] MEDS ORDERED: SEVOFLURANE INHAL SOLN 250 ML PEN BTL ONE (19:09)
[2019-06-09] MEDS ORDERED: PROPOFOL IV EMULSION 10 MG/ML 20 ML VIAL ONE (19:09)
[2019-06-09] MEDS ORDERED: ONDANSETRON HCL INJ 2MG/ML 2ML 2 MG/ML VIAL ONE (19:09)
--- NOTE | 2019-06-09 19:10 | NUR ---
received patient aaox3, resting in bed. stable condition. no needs voiced. no distress observed. bed locked, lowest position, call light within easy reach. will continue to monitor the patient.
[2019-06-09 20:00] VITALS: BP 169/77
[2019-06-09] MEDS ORDERED: ZOLPIDEM TARTRATE 5 MG TAB PO PRN (21:00)
[2019-06-09] MEDS ORDERED: ATORVASTATIN 20 MG TAB PO SCH (21:00)
[2019-06-09] MEDS ORDERED: ATORVASTATIN 40 MG TAB PO SCH (21:00)
--- NOTE | 2019-06-09 21:00 | NUR ---
pt remains in stable condition. denies pain. no needs voiced. instructed to call for assistance as needed, pt verbalized understanding. bed locked and in lowest position, call light within easy reach.
[2019-06-10] VITALS: BP 128/61
[2019-06-10] MEDS: CEFAZOLIN SOD 1 GM/NS 50ML 50 ML IV SCH ×2 (01:15→08:34)
--- NOTE | 2019-06-10 01:15 | NUR ---
assisted patient to restroom. pt voided. assisted pt back to bed. no further needs voiced. bed locked and in lowest position. call light within easy reach.
[2019-06-10] MEDS: LACTATED RINGER'S 1,000 ML IV SCH (03:19)
[2019-06-10 04:00] VITALS: BP 128/58
--- NOTE | 2019-06-10 06:55 | NUR ---
Bedside rounds complete, patient sitting on a chair awaiting discharge.
[2019-06-10] MEDS: GLIPIZIDE 5 MG TAB PO SCH (07:30)
[2019-06-10 07:37] VITALS: BP 170/74
[2019-06-10] MEDS: METFORMIN HCL 500 MG TAB PO SCH (08:00)
[2019-06-10] MEDS: HYDROCHLOROTHIAZIDE 25 MG TAB PO SCH (08:35)
[2019-06-10] MEDS: LOSARTAN POTASSIUM 25 MG TAB PO SCH (08:35)
[2019-06-10] MEDS: LABETALOL HCL 200 MG TAB PO SCH (08:36)
[2019-06-10] MEDS ORDERED: NORCO 7.5-3251 EACH PO (08:58)
[2019-06-10 09:00] VITALS: BP 170/74
[2019-06-10] MEDS ORDERED: NON-FORMULARY MEDICATION (Calcium Carbonate/Vitamin D3 (Caltrate 600 W-D Tablet) 1 TAB) PO SCH (09:00)
[2019-06-10] MEDS ORDERED: OYST-CAL-D 500MG TABLET PO SCH (09:00)
[2019-06-10] MEDS ORDERED: AMLODIPINE BESYLATE 5 MG TAB PO SCH (09:00)
--- NOTE | 2019-06-10 10:56 | NUR ---
Patient discharged, wheelchair used to transport patient to car, removed PIV and hemovac removed, no bleeding, dressing changed, supplies given to family.
== END 2019-06-10 10:55 | disposition home or self-care (01) ==
LOC: OR 06:30 → IMCU 10:40
PROVIDERS: ADMIT Neurological Surgery; ATTEND Neurological Surgery
DX: M48.062 Spinal stenosis, lumbar region with neurogenic claudication (principal); Z01.812 Encounter for preprocedural laboratory examination; Z01.811 Encounter for preprocedural respiratory examination; Z86.73 Personal history of transient ischemic attack (TIA), and cerebral infarction without residual deficits; G47.33 Obstructive sleep apnea (adult) (pediatric); I48.91 Unspecified atrial fibrillation; E11.22 Type 2 diabetes mellitus with diabetic chronic kidney disease; I12.9 Hypertensive chronic kidney disease with stage 1 through stage 4 chronic kidney disease, or unspecified chronic kidney disease; N18.9 Chronic kidney disease, unspecified; I25.10 Atherosclerotic heart disease of native coronary artery without angina pectoris; Z98.61 Coronary angioplasty status; Z79.84 Long term (current) use of oral hypoglycemic drugs
CPT/HCPCS: 36415 ×3; 63047; 63048; 71046; 72020; 80048; 82948 ×2; 85025; 85610; 85730; 86850 ×2; 86900 ×2; 88304; 88311; G0378 ×2; J0131; J0360; J0690 ×2; J1100; J1170; J2001 ×2; J2250; J2270; J2405; J2550; J2704; J3010; J3490; J7050; J7121 ×2